=== PATIENT | male | born 2000 | race African-American/Black ===

== ENCOUNTER 2023-09-19 08:41 | Emergency (ER) | payer OTHER ==
[~2023-09-19] VITALS: Ht 182.9 cm; Wt 113.5 kg
[2023-09-19] MEDS ORDERED: ACET1TAB55 PO (08:51)
[2023-09-19 11:57] VITALS: BP 139/81; TEMP 100.5; O2SAT 97
[2023-09-19] MEDS ORDERED: IBUPROFEN 800 MG TAB PO ONE (12:00)
== END 2023-09-19 12:18 | disposition home or self-care (01) ==
LOC: M ED 08:41
DX: J02.9 Acute pharyngitis, unspecified (principal); R00.0 Tachycardia, unspecified; Z79.1 Long term (current) use of non-steroidal anti-inflammatories (NSAID); F17.290 Nicotine dependence, other tobacco product, uncomplicated

== ENCOUNTER 2023-11-20 10:55 | Emergency (ER) | payer OTHER ==
[~2023-11-20] VITALS: Ht 182.9 cm; Wt 104.3 kg
[~2023-11-20 10:55] MED LIST: ACET1TAB55 PO
[2023-11-20 12:18] LABS: BASO % 0.2 % (0.0-1.0); HEMATOCRIT 51.1 % (42.0-52.0); HEMOGLOBIN 17.6 g/dl (13.5-17.5); LYMPH # 1.7 10^3/uL (1.5-5.0); LYMPH % 16.7 % (24.0-44.0); MEAN CORPUSCULAR HEMOGLOBIN 27.2 pg (27.0-33.0); MEAN CORPUSCULAR HGB CONC 34.4 g/dl (32.0-36.5); MEAN CORPUSCULAR VOLUME 79.1 fl (80.0-96.0); MONO # 0.8 10^3/uL (0.0-0.8); MONO % 7.6 % (2.0-8.0); NEUTROPHILS # 7.7 10^3/uL (1.5-8.5); NEUTROPHILS % 75.3 % (36.0-66.0); PLATELET COUNT, AUTOMATED 268 10^3/uL (150-450); RED BLOOD COUNT 6.46 10^6/uL (4.30-6.10); WHITE BLOOD COUNT 10.2 10^3/uL (4.0-10.0)
[2023-11-20 12:32] LABS: INR 1.07; PARTIAL THROMBOPLASTIN TIME 26.5 SECONDS (24.8-34.2); PROTHROMBIN TIME 13.6 SECONDS (12.5-14.5)
[2023-11-20 12:41] LABS: LIPASE 26 U/L (12-53)
[2023-11-20 12:43] LABS: ALBUMIN 4.1 G/DL (3.2-5.2); ALKALINE PHOSPHATASE 119 U/L (46-116); ALT/SGPT 100 U/L (7.0-40); AST/SGOT 38 U/L (<34); BILIRUBIN,DIRECT 0.3 MG/DL (<0.4); BILIRUBIN,TOTAL 0.6 MG/DL (0.3-1.2); BLOOD UREA NITROGEN 18 MG/DL (9-23); CARBON DIOXIDE LEVEL 21 MMOL/L (20-31); CHLORIDE LEVEL 106 MMOL/L (98-107); CREATININE FOR GFR 0.88 MG/DL (0.70-1.30); GLOMERULAR FILTRATION RATE > 60.0 (>60); GLUCOSE, FASTING 96 MG/DL (60-100); POTASSIUM SERUM 4.6 MMOL/L (3.5-5.1); SODIUM LEVEL 139 MMOL/L (136-145); TOTAL PROTEIN 7.2 G/DL (5.7-8.2)
[2023-11-20] MEDS: NS 1,000 ML IV ONE (13:39)
[2023-11-20] MEDS: ONDANSETRON 4MG 2ML VIAL IV ONE (13:39)
[2023-11-20] MEDS: PANTOPRAZOLE 40MG VIAL IV ONE (13:40)
[2023-11-20] MEDS: GASTROGRAFIN SOLUTION 30ML PO SCH (14:23)
[2023-11-20] MEDS ORDERED: ISOVUE-370 76% 100ML VIAL As Ordered ONE (15:17)
[2023-11-20 16:21] VITALS: TEMP 98.1
[2023-11-20] MEDS ORDERED: PROT1TAB2 PO (16:21)
[2023-11-20] MEDS ORDERED: CARA1TAB6 PO (16:21)
[2023-11-20] MEDS ORDERED: ONDA4TAB6 PO (16:21)
[2023-11-20 16:44] VITALS: BP 155/82; O2SAT 98
== END 2023-11-20 17:02 | disposition home or self-care (01) ==
LOC: M ED 13:32
DX: K92.0 Hematemesis (principal); A08.39 Other viral enteritis; Z79.810 Long term (current) use of selective estrogen receptor modulators (SERMs); Z79.83 Long term (current) use of bisphosphonates; Z79.899 Other long term (current) drug therapy
CPT/HCPCS: 74177; 80048; 80076; 81001; 83690; 85025; 85610; 85730; 96361; 96374; 96375; 99284; C9113; J2405; Q9963; Q9967

== ENCOUNTER 2024-02-19 06:52 | Emergency (ER) | payer OTHER ==
[~2024-02-19] VITALS: Ht 182.9 cm; Wt 99.1 kg
[~2024-02-19 06:52] MED LIST changes: +CARA1TAB6 PO; +ONDA-282 PO; +PROT1TAB2 PO
[2024-02-19] MEDS: ONDANSETRON 4MG 2ML VIAL IV ONE (08:13)
[2024-02-19] MEDS: NS 1,000 ML IV ONE (08:14)
[2024-02-19 08:15] LABS: BASO % 0.1 % (0.0-1.0); HEMATOCRIT 41.9 % (42.0-52.0); HEMOGLOBIN 13.9 g/dl (13.5-17.5); LYMPH # 0.9 10^3/uL (1.5-5.0); LYMPH % 7.4 % (24.0-44.0); MEAN CORPUSCULAR HEMOGLOBIN 26.7 pg (27.0-33.0); MEAN CORPUSCULAR HGB CONC 33.2 g/dl (32.0-36.5); MEAN CORPUSCULAR VOLUME 80.6 fl (80.0-96.0); MONO # 0.4 10^3/uL (0.0-0.8); MONO % 3.5 % (2.0-8.0); NEUTROPHILS # 10.3 10^3/uL (1.5-8.5); NEUTROPHILS % 88.7 % (36.0-66.0); PLATELET COUNT, AUTOMATED 209 10^3/uL (150-450); WHITE BLOOD COUNT 11.6 10^3/uL (4.0-10.0)
[2024-02-19 08:41] LABS: LIPASE 30 U/L (12-53)
[2024-02-19 08:44] LABS: ALBUMIN 3.3 G/DL (3.2-5.2); ALKALINE PHOSPHATASE 121 U/L (46-116); ALT/SGPT 46 U/L (7.0-40); AST/SGOT 28 U/L (<34); BILIRUBIN,TOTAL 0.4 MG/DL (0.3-1.2); BLOOD UREA NITROGEN 15 MG/DL (9-23); CALCIUM LEVEL 9.6 MG/DL (8.5-10.1); CARBON DIOXIDE LEVEL 24 MMOL/L (20-31); CHLORIDE LEVEL 113 MMOL/L (98-107); GLOMERULAR FILTRATION RATE > 60.0 (>60); GLUCOSE, FASTING 123 MG/DL (60-100); SODIUM LEVEL 146 MMOL/L (136-145); TOTAL PROTEIN 5.8 G/DL (5.7-8.2)
[2024-02-19] MEDS ORDERED: METAL LOCK LOOP XX ONE (10:10)
[2024-02-19] MEDS ORDERED: FLON1SPR NARES (10:20)
[2024-02-19] MEDS ORDERED: CLAR10CA3 PO (10:20)
[2024-02-19 10:23] VITALS: TEMP 97.8
[2024-02-19] MEDS ORDERED: ONDA-282 PO (11:55)
[2024-02-19 12:12] VITALS: BP 142/79; O2SAT 99
== END 2024-02-19 12:16 | disposition home or self-care (01) ==
LOC: M ED 06:52 → EDBD 06:52 → M ED 12:16
DX: R11.2 Nausea with vomiting, unspecified (principal); R74.01 Elevation of levels of liver transaminase levels; Z79.83 Long term (current) use of bisphosphonates
CPT/HCPCS: 80053; 81001; 83690; 85025; 87486; 87581; 87633; 87798; 96361; 96374; 99284; J2405

== ENCOUNTER 2024-05-02 07:03 | Inpatient (IN) | payer OTHER ==
[~2024-05-02] VITALS: Ht 182.9 cm; Wt 102.3 kg
[~2024-05-02 07:03] MED LIST changes: +CLAR10CA3 PO; +FLON1SPR NARES
[2024-05-02] MEDS: NS 1,000 ML IV ONE (07:45)
[2024-05-02 08:06] LABS: BASO % 0.1 % (0.0-1.0); HEMATOCRIT 43.4 % (42.0-52.0); HEMOGLOBIN 14.5 g/dl (13.5-17.5); LYMPH % 13.4 % (24.0-44.0); MEAN CORPUSCULAR HEMOGLOBIN 26.6 pg (27.0-33.0); MEAN CORPUSCULAR HGB CONC 33.4 g/dl (32.0-36.5); MEAN CORPUSCULAR VOLUME 79.6 fl (80.0-96.0); MONO # 0.4 10^3/uL (0.0-0.8); NEUTROPHILS # 6.3 10^3/uL (1.5-8.5); NEUTROPHILS % 81.1 % (36.0-66.0); PLATELET COUNT, AUTOMATED 212 10^3/uL (150-450); RED BLOOD COUNT 5.45 10^6/uL (4.30-6.10); WHITE BLOOD COUNT 7.7 10^3/uL (4.0-10.0)
[2024-05-02 08:11] LABS: ERYTHROCYTE SEDIMENTATION RATE 13 mm/hr (0-15)
[2024-05-02 08:50] LABS: ALBUMIN 3.5 G/DL (3.2-5.2); ALKALINE PHOSPHATASE 154 U/L (46-116); ALT/SGPT 55 U/L (7.0-40); AST/SGOT 28 U/L (<34); BILIRUBIN,DIRECT 0.2 MG/DL (<0.4); BILIRUBIN,TOTAL 0.4 MG/DL (0.3-1.2); BLOOD UREA NITROGEN 12 MG/DL (9-23); CALCIUM LEVEL 9.6 MG/DL (8.5-10.1); CARBON DIOXIDE LEVEL 23 MMOL/L (20-31); CHLORIDE LEVEL 112 MMOL/L (98-107); CREATININE FOR GFR 0.63 MG/DL (0.70-1.30); FREE T4 6.27 NG/DL (0.89-1.76); GLOMERULAR FILTRATION RATE > 60.0 (>60); GLUCOSE, FASTING 116 MG/DL (60-100); MAGNESIUM LEVEL 1.5 MG/DL (1.8-2.4); POTASSIUM SERUM 2.9 MMOL/L (3.5-5.1); SODIUM LEVEL 142 MMOL/L (136-145); THYROID STIMULATING HORMONE 0.008 uIU/ML (0.55-4.78); TOTAL PROTEIN 6.4 G/DL (5.7-8.2)
[2024-05-02] MEDS: POTASSIUM CHLORIDE 10MEQ SR TABLET PO ONE (09:50)
[2024-05-02] MEDS: KCL 10MEQ/100ML SWI (KRUN) 10 MEQ in IV 1 EA IV ONE (09:50)
[2024-05-02] MEDS: MAG SULF 1GM/100ML (MAG RUN) 1 GM in IV 1 EA IV ONE (12:34)
[2024-05-02] MEDS ORDERED: HOME MED LIST COMPLETE! XX SCH (12:35)
[2024-05-02 13:48] LABS: CPK CREATINE PHOSPHOKINASE 733 U/L (46-171)
[2024-05-02] MEDS: PROPRANOLOL INJ 1MG/ML 1ML VIAL IV STA (13:51)
[2024-05-02 13:56] LABS: FREE T3 > 20.0 PG/ML (2.3-4.2)
[2024-05-02 15:03] LABS: BLOOD UREA NITROGEN 10 MG/DL (9-23); CALCIUM LEVEL 9.8 MG/DL (8.5-10.1); CARBON DIOXIDE LEVEL 24 MMOL/L (20-31); CHLORIDE LEVEL 110 MMOL/L (98-107); CREATININE FOR GFR 0.61 MG/DL (0.70-1.30); GLOMERULAR FILTRATION RATE > 60.0 (>60); GLUCOSE, FASTING 123 MG/DL (60-100); MAGNESIUM LEVEL 1.8 MG/DL (1.8-2.4); POTASSIUM SERUM 4.1 MMOL/L (3.5-5.1); SODIUM LEVEL 142 MMOL/L (136-145)
[2024-05-02] MEDS: methylPREDNISolone 40MG 1ML VIAL IV ONE (15:36)
[2024-05-02] MEDS: POTASSIUM CHLORIDE 10MEQ SR TABLET PO SCH (15:38)
[2024-05-02] MEDS: PROPRANOLOL 20 MG TAB PO SCH (15:49)
[2024-05-03 06:05] LABS: BASO % 0.1 % (0.0-1.0); EOS % 0.1 % (0.0-3.0); HEMATOCRIT 41.2 % (42.0-52.0); HEMOGLOBIN 13.7 g/dl (13.5-17.5); LYMPH # 2.6 10^3/uL (1.5-5.0); LYMPH % 18.1 % (24.0-44.0); MEAN CORPUSCULAR HEMOGLOBIN 26.7 pg (27.0-33.0); MEAN CORPUSCULAR HGB CONC 33.3 g/dl (32.0-36.5); MEAN CORPUSCULAR VOLUME 80.3 fl (80.0-96.0); MONO # 1.4 10^3/uL (0.0-0.8); MONO % 9.7 % (2.0-8.0); NEUTROPHILS # 10.2 10^3/uL (1.5-8.5); NEUTROPHILS % 71.7 % (36.0-66.0); PLATELET COUNT, AUTOMATED 215 10^3/uL (150-450); RED BLOOD COUNT 5.13 10^6/uL (4.30-6.10); WHITE BLOOD COUNT 14.2 10^3/uL (4.0-10.0)
[2024-05-03 06:34] LABS: BLOOD UREA NITROGEN 13 MG/DL (9-23); CALCIUM LEVEL 10.1 MG/DL (8.5-10.1); CARBON DIOXIDE LEVEL 24 MMOL/L (20-31); CHLORIDE LEVEL 111 MMOL/L (98-107); CREATININE FOR GFR 0.63 MG/DL (0.70-1.30); GLOMERULAR FILTRATION RATE > 60.0 (>60); GLUCOSE, FASTING 114 MG/DL (60-100); POTASSIUM SERUM 4.2 MMOL/L (3.5-5.1); SODIUM LEVEL 140 MMOL/L (136-145)
[2024-05-03 08:10] LABS: MAGNESIUM LEVEL 1.8 MG/DL (1.8-2.4)
[2024-05-03] MEDS: POTASSIUM CHLORIDE 10MEQ SR TABLET PO SCH (09:36)
[2024-05-03 11:45] VITALS: BP 142/77
[2024-05-03] MEDS: PROPRANOLOL 10 MG TAB PO ONE (11:45)
[2024-05-03 11:53] LABS: ALBUMIN 3.2 G/DL (3.2-5.2); ALKALINE PHOSPHATASE 135 U/L (46-116); ALT/SGPT 52 U/L (7.0-40); AST/SGOT 25 U/L (<34); BILIRUBIN,DIRECT 0.2 MG/DL (<0.4); BILIRUBIN,TOTAL 0.4 MG/DL (0.3-1.2); TOTAL PROTEIN 6.2 G/DL (5.7-8.2)
[2024-05-03 12:58] LABS: THYROID PEROXIDASE ANTIBODY > 1300.0 U/ML (<60.0)
[2024-05-03] MEDS ORDERED: METH25TAB PO (13:01)
[2024-05-03] MEDS ORDERED: POTA-136 PO (13:01)
[2024-05-03] MEDS ORDERED: PROP40TA62 PO (13:01)
[2024-05-03 13:19] VITALS: BP 142/77; TEMP 98.3; O2SAT 98
[2024-05-03] MEDS ORDERED: PROPRANOLOL 20 MG TAB PO SCH (21:00)
== END 2024-05-03 12:59 | disposition home or self-care (01) | DRG 644 ==
LOC: EDBD 07:03 → M ED 07:03 → M ED INP 13:50
PROVIDERS: ADMIT Internal Medicine Nephrology; ATTEND Internal Medicine Nephrology
DX: E05.90 Thyrotoxicosis, unspecified without thyrotoxic crisis or storm (principal); M62.82 Rhabdomyolysis; E87.6 Hypokalemia; E83.42 Hypomagnesemia; Z79.899 Other long term (current) drug therapy

== ENCOUNTER 2024-06-20 07:00 | Emergency (ER) | payer OTHER ==
[~2024-06-20] VITALS: Ht 182.9 cm; Wt 102.7 kg
[~2024-06-20 07:00] MED LIST changes: +METH25TAB PO; +POTA-136 PO; +PROP40TA62 PO
[2024-06-20 08:07] LABS: BASO % 0.3 % (0.0-1.0); EOS # 0.1 10^3/uL (0.0-0.5); EOS % 1.6 % (0.0-3.0); HEMATOCRIT 44.1 % (42.0-52.0); HEMOGLOBIN 14.6 g/dl (13.5-17.5); LYMPH # 2.1 10^3/uL (1.5-5.0); LYMPH % 33.1 % (24.0-44.0); MEAN CORPUSCULAR HEMOGLOBIN 26.6 pg (27.0-33.0); MEAN CORPUSCULAR HGB CONC 33.1 g/dl (32.0-36.5); MEAN CORPUSCULAR VOLUME 80.5 fl (80.0-96.0); MONO # 0.9 10^3/uL (0.0-0.8); MONO % 14.8 % (2.0-8.0); NEUTROPHILS # 3.1 10^3/uL (1.5-8.5); NEUTROPHILS % 49.9 % (36.0-66.0); PLATELET COUNT, AUTOMATED 199 10^3/uL (150-450); RED BLOOD COUNT 5.48 10^6/uL (4.30-6.10); WHITE BLOOD COUNT 6.2 10^3/uL (4.0-10.0)
[2024-06-20 08:39] LABS: BLOOD UREA NITROGEN 18 MG/DL (9-23); CALCIUM LEVEL 10.1 MG/DL (8.5-10.1); CARBON DIOXIDE LEVEL 24 MMOL/L (20-31); CHLORIDE LEVEL 111 MMOL/L (98-107); CREATININE FOR GFR 0.64 MG/DL (0.70-1.30); GLOMERULAR FILTRATION RATE > 60.0 (>60); GLUCOSE, FASTING 102 MG/DL (60-100); POTASSIUM SERUM 3.5 MMOL/L (3.5-5.1); SODIUM LEVEL 140 MMOL/L (136-145)
[2024-06-20 08:42] LABS: FREE T4 4.83 NG/DL (0.89-1.76); THYROID STIMULATING HORMONE 0.008 uIU/ML (0.55-4.78)
[2024-06-20 09:17] VITALS: BP 139/89; TEMP 98.6; O2SAT 97
== END 2024-06-20 09:24 | disposition home or self-care (01) ==
LOC: M ED 07:00 → EDBD 07:00 → M ED 09:24
DX: E03.9 Hypothyroidism, unspecified (principal); R25.2 Cramp and spasm; Z79.899 Other long term (current) drug therapy

== ENCOUNTER 2024-12-12 11:54 | Emergency (ER) | payer OTHER ==
[~2024-12-12] VITALS: Ht 182.9 cm; Wt 102.0 kg
[~2024-12-12 11:54] MED LIST changes: +METH-1386 PO; -METH25TAB PO
[2024-12-12 12:02] VITALS: BP 169/81; TEMP 98.9; O2SAT 96
== END 2024-12-12 18:38 | disposition left against medical advice (07) ==
LOC: M ED 11:54
DX: Z53.21 Procedure and treatment not carried out due to patient leaving prior to being seen by health care provider (principal)

== ENCOUNTER 2025-08-18 15:18 | Emergency (ER) | payer OTHER ==
[~2025-08-18] VITALS: Ht 185.4 cm; Wt 105.9 kg
[2025-08-18] MEDS ORDERED: ATEN50TA2 PO (15:39)
[2025-08-18] MEDS ORDERED: METH-1387 PO (15:39)
[2025-08-18] MEDS ORDERED: VITA100093 PO (15:39)
[2025-08-18] MEDS: NS (Normal Saline) 0.9% 1,000 ML IV ONE (16:37)
[2025-08-18 16:39] LABS: BASO # 0.0 10^3/uL (0.0-0.2); BASO % 0.2 % (0.0-1.0); EOS # 0.0 10^3/uL (0.0-0.5); EOS % 0.2 % (0.0-3.0); LYMPH # 1.8 10^3/uL (1.5-5.0); LYMPH % 18.7 % (24.0-44.0); MONO # 1.0 10^3/uL (0.0-0.8); MONO % 10.0 % (2.0-8.0); NEUTROPHILS # 6.9 10^3/uL (1.5-8.5); NEUTROPHILS % 70.6 % (36.0-66.0); PLATELET COUNT, AUTOMATED 392 10^3/uL (150-450)
[2025-08-18 17:04] LABS: ETHYL ALCOHOL (ETHANOL) < 0.003 % (0.000-0.010)
[2025-08-18 17:05] LABS: SALICYLATE LEVEL < 3.0 MG/DL (<30)
[2025-08-18 17:06] LABS: ALT/SGPT 83 U/L (7.0-40); AST/SGOT 38 U/L (<34); CALCIUM LEVEL 10.4 MG/DL (8.5-10.1); CARBON DIOXIDE LEVEL 22 MMOL/L (20-31); CHLORIDE LEVEL 102 MMOL/L (98-107); CREATININE FOR GFR 0.80 MG/DL (0.70-1.30); GLOMERULAR FILTRATION RATE > 90.0 (>60); POTASSIUM SERUM 4.4 MMOL/L (3.5-5.1); SODIUM LEVEL 137 MMOL/L (136-145)
[2025-08-18 17:09] LABS: CPK CREATINE PHOSPHOKINASE 296 U/L (46-171)
[2025-08-18 18:03] VITALS: BP 153/82; TEMP 98.2; O2SAT 97
[2025-08-18 18:21] LABS: FREE T4 3.73 NG/DL (0.89-1.76)
[2025-08-18] MEDS: LORazepam 1 MG TAB PO STA (18:59)
[2025-08-18] MEDS: LORazepam 1 MG TAB PO ONE (19:01)
[2025-08-18 19:07] LABS: AMPHETAMINES LEVEL URINE NEGATIVE (NEGATIVE); BARBITURATES URINE NEGATIVE (NEGATIVE); BENZODIAZEPINES URINE NEGATIVE (NEGATIVE); COCAINE METABOLITE URINE NEGATIVE (NEGATIVE); METHADONE URINE NEGATIVE (NEGATIVE)
[2025-08-18 19:08] LABS: CANNABINOIDS URINE NEGATIVE (NEGATIVE); OPIATES URINE NEGATIVE (NEGATIVE); PHENCYCLIDINE URINE NEGATIVE (NEGATIVE)
== END 2025-08-18 19:21 | disposition home or self-care (01) ==
LOC: M ED 15:18
DX: F19.230 Other psychoactive substance dependence with withdrawal, uncomplicated (principal); E05.90 Thyrotoxicosis, unspecified without thyrotoxic crisis or storm; I10 Essential (primary) hypertension; Z79.899 Other long term (current) drug therapy